=== PATIENT | male | born 1965 | race Caucasian/White ===

== ENCOUNTER → 2018-02-18 09:46 | Outpatient (CLI) | payer OTHER, SELFPAY ==
[2018-02-18 10:21] LABS: 585 Gram Check PASS; Amount Collected in g 585 GRAM; Dizziness NO; Postdiastolic BP 76; Postsystolic BP 127; Prediastolic 83; Presystolic 127; Pulse 48; Site of phlebotomy RIGHT AC; Swelling NO; Therapeutic Phleb Comment NO COMMENT; Zero Check Sebra Scale PASS
== END ==
PROVIDERS: Visit Provider Nurse Practitioner Acute Care
DX: R51 Headache (principal); R79.89 Other specified abnormal findings of blood chemistry
CPT/HCPCS: 99195

== ENCOUNTER → 2023-02-09 13:42 | Outpatient (CLI) | payer OTHER, SELFPAY ==
--- NOTE | 2023-02-09 13:59 | DI.MRI.S_ITS ---
PROCEDURE: MR BRAIN (PITUITARY) WWO CON INDICATIONS: hyperprolacinemia TECHNIQUE: Noncontrast sagittal and axial FLAIR, axial gradient echo, axial diffusion and ADC through the brain. Thin-slice sagittal and coronal T1 spin echo, coronal T2 fast spin echo through the pituitary. After the administration contrast, optional dynamic coronal T1 spin echo, thin-slice coronal and sagittal T1 spin echo images through the pituitary fossa; axial and coronal and sagittal T1 spin echo with fat saturation through the brain. COMPARISON: [facility], MR, MR PITUITARY WITH/WITHOUT CONTRAST, 03/27/2021, 12:04. FINDINGS: Image quality: Excellent. Pituitary Gland: The pituitary gland demonstrates normal signal and bulk. On the postcontrast imaging, no masses or abnormally enhancing areas are seen. The pituitary stalk and infundibulum have an unremarkable appearance. A normal appearing pituitary bright spot is seen posteriorly on the precontrast sagittal T1-weighted images. The optic chiasm and the ventral forebrain have an unremarkable appearance. CSF Spaces: Ventricles are normal in size and shape. Basal cisterns are patent. No extra-axial fluid collections. Brain: No intracranial bleeds or mass effects. No abnormal intracranial enhancement. Dickson-white matter interface is intact. Diffusion weighted images demonstrate no acute ischemic insults. Brainstem is normal. Normal intravascular flow voids are present. Skull and face: Calvarial marrow is normal in signal. Orbits appear normal. Sinuses: Sinuses and mastoids are clear. IMPRESSION: Normal pituitary, without a cause hyperprolactinemia identified. Dictated by: Olivier Brady M.D. on 02/09/2023 at 15:46 Approved by: Olivier Brady M.D. on 02/09/2023 at 15:49
== END ==
PROVIDERS: PCP Family Medicine; Referring Provider Specialist; Visit Provider Specialist
DX: E22.1 Hyperprolactinemia (principal)
CPT/HCPCS: 70553; A9579

== ENCOUNTER → 2024-04-28 14:59 | Outpatient (CLI) | payer BC, SELFPAY ==
[2024-04-28 17:28] LABS: Prostate Specific Antigen Scrn 3.57 ng/mL (0.1-4.0)
== END ==
LOC: LAB 15:01
PROVIDERS: PCP Family Medicine; Referring Provider Urology; Visit Provider Urology
DX: Z12.5 Encounter for screening for malignant neoplasm of prostate (principal)
CPT/HCPCS: 36415; G0103